=== PATIENT | female | born 1985 | race Hispanic/Latino ===

== ENCOUNTER 2023-06-29 12:34 | Observation (INO) | payer OTHER ==
[2023-06-29 14:00] LABS: PT Prothrombin Time 12.4 SECONDS (9.5-12.5); PTT, Activated Partial Thromb 31.6 SECONDS (24.3-36.9); Protime INR 1.13; Sqamous Epithelial <5 /HPF (None Seen); Urine Bacteria None Seen /HPF (<20); Urine Culture Reflex Order NOT NEEDED; Urine Micro Reflex YN NO BILL MICROSCOPIC; Urine Mucus Slight /HPF (None Seen); Urine RBC <5 /HPF (None Seen); Urine WBC <5 /HPF (<5)
[2023-06-29 14:06] LABS: Absolute Basophils 0.1 K/uL (0-0.5); Absolute Eosinophils 0.1 K/uL (0-0.5); Absolute Lymphocytes (CBC) 1.7 K/uL (0.7-4.9); Absolute Monocytes 0.6 K/uL (0.1-1.3); Basophils % 0.7 % (0-1.3); Eosinophils % 1.1 % (0-4.4); Hematocrit 37.3 % (36.0-45.0); Hemoglobin 12.4 g/dL (12.0-15.0); Lymphocytes % 19.6 % (15.3-44.8); MCH 28.2 pg (27.0-35.0); MCHC 33.2 g/dL (32.0-36.0); MPV 9.2 fL (7.6-11.3); Monocytes % 7.6 % (3.3-12.3); Platelets 351 thou/uL (152-406); RBC Red Blood Cell Count 4.39 M/uL (3.86-4.86)
[2023-06-29 14:16] LABS: Albumin 3.1 g/dL (3.4-5.0); Albumin/Globulin Ratio 0.7 (1.1-1.8); Anion Gap 8.7 mEq/L (5.0-15.0); Bilirubin Total 0.3 mg/dL (0.2-1.0); Globulin 4.3 g/dL (2.3-3.5); Potassium 3.7 mEq/L (3.5-5.1); Protein, Total 7.4 g/dL (6.4-8.2)
--- NOTE | 2023-06-29 14:22 | RAD REPORT ---
EXAM DESCRIPTION: CTAbdomen Pelvis W Contrast - 06/29/2023 2:15 pm CLINICAL HISTORY: Abdominal pain. pyelo COMPARISON: No comparisons TECHNIQUE: Biphasic CT imaging of the abdomen and pelvis was performed with 100 ml non-ionic IV cont rast. All CT scans are performed using dose optimization technique as appropriate and may include automated exposure control or mA/KV adjustment according to patient size. FINDINGS: The lung bases are clear. The liver is diffusely fatty. Spleen, pancreas, adrenal glands and kidneys are within normal limits. No bowel obstruction, free air, free fluid or abscess. Sigmoid diverticulosis. The appendix is normal . No evidence of significant lymphadenopathy. No suspicious bony findings. IMPRESSION: No acute intra-abdominal or pelvic finding.
[2023-06-29] MEDS ORDERED: Meropenem 1000 MG/VIAL IV ONE (14:44)
[2023-06-29] MEDS ORDERED: NA CHLORIDE 0.9% 100 ML ONE (14:44)
--- NOTE | 2023-06-29 14:47 | EDPHYS ---
Physician Documentation [facility] Name: Maren Sampson Age: 37 yrs Sex: Female : 1985 Arrival Date: 06/29/2023 Time: 12:34 Bed 16 Private MD: ED Physician Jermaine Sinha HPI: 06/28 13:36 This 37 yrs old Female presents to ER via Ambulatory with complaints of UTI. sb4 13:36 urinary symptoms started 1 month ago, took azo for 1 week without improvement. went to sb4 PCP, put her on macrobid, no improvement. culture grew ecoli ESBL with sensitivity to augmentin, macrobid, sulfa and mereopenem. took bactrim yesterday, had allergic reaction, PCP sent here for further management. patient endorses chills and low back pain. no history of UTIs, is not sexually active. Historical: - Allergies: 13:01 PENICILLINS; nj1 13:01 Sulfa (Sulfonamide Antibiotics); nj1 - PMHx: 13:01 Pre-diabetic; nj1 - Immunization history:: Client reports receiving the 2nd dose of the Covid vaccine. - Infectious Disease History:: ESBL, . - Social history:: Smoking status: Patient denies any tobacco usage or history of. ROS: 13:36 Constitutional: Positive for chills, sb4 13:36 Back: Positive for pain at rest, 13:36 : Positive for flank pain, hematuria, burning with urination, 13:36 All other systems are negative, Exam: 13:36 Constitutional: This is a well developed, well nourished patient who is awake, alert, sb4 and in no acute distress. Head/Face: Normocephalic, atraumatic. Eyes: Extra-ocular motions intact. Periorbital areas with no swelling, redness, or edema. ENT: Mucous membranes moist. Cardiovascular: Regular rate and rhythm with a normal S1 and S2. Respiratory: Lungs have equal breath sounds bilaterally, clear to auscultation and percussion. No rales, rhonchi or wheezes noted. No increased work of breathing, no retractions or nasal flaring. Abdomen/GI: Soft, non-tender, no distension. Skin: Warm, dry with normal turgor. Normal color with no rashes, no lesions, and no evidence of cellulitis. MS/ Extremity: Pulses equal, no cyanosis. Neurovascular intact. Full, normal range of motion. Neuro: Awake and alert, GCS 15, oriented to person, place, time, and situation. Motor strength 5/5 in all extremities. Sensory grossly intact. Vital Signs: 12:49 BP 139 / 83; Pulse 84; Resp 16; Temp 97.4; Pulse Ox 99% on R/A; Weight 87.09 kg; Height nj1 5 ft. 5 in. ; Pain 5/10; 14:22 BP 122 / 76; Pulse 82; Resp 16; Pulse Ox 97% ; bp 16:07 BP 127 / 74; Pulse 78; Resp 16; Pulse Ox 100% ; bp 12:49 Body Mass Index 31.95 (87.09 kg, 165.1 cm) nj1 12:49 Pain Scale: Adult nj1 MDM: 13:00 Patient medically screened. sb4 14:47 Data reviewed: vital signs, nurses notes, lab test result(s), radiologic studies, I sb4 have discussed the patient's presentation/case with the attending Emergency Department Physician; and as a result, I will admit patient. Consideration of Admission/Observation Escalation of care including admission/observation considered. Counseling: I had a detailed discussion with the patient and/or guardian regarding the historical points, exam findings, and any diagnostic results supporting the discharge/admit diagnosis, lab results, radiology results, the need for further work-up and treatment in the hospital. 06/28 13:02 Order name: Test, Urine; Complete Time: 14:06 [facility] 06/28 13:09 Order name: Blood Culture Adult (2) [facility] 06/28 13:09 Order name: CBC with Diff; Complete Time: 14:18 [facility] 06/28 13:09 Order name: CMP; Complete Time: 14:18 [facility] 06/28 13:09 Order name: Lactate w/ 2H reflex if indic.; Complete Time: 14:18 [facility] 06/28 13:09 Order name: Protime (+inr); Complete Time: 14:06 4 06/28 13:09 Order name: Ptt, Activated; Complete Time: 14:06 4 06/28 13:09 Order name: Urine Culture [facility] 06/28 13:52 Order name: Urine Microscopic Only; Complete Time: 14:06 EDMS 06/28 16:29 Order name: C-Reactive Protein EDMS 06/28 16:29 Order name: C-Reactive Protein EDMS 06/28 16:29 Order name: CBC with Automated Diff EDMS 06/28 16:29 Order name: CBC with Automated Diff EDMS 06/28 16:29 Order name: Comprehensive Metabolic Panel EDMS 06/28 16:29 Order name: Comprehensive Metabolic Panel EDMS 06/28 16:29 Order name: Procalcitonin EDMS 06/28 16:29 Order name: Procalcitonin EDMS 06/28 13:57 Order name: CT Abd/Pelvis - IV Contrast Only; Complete Time: 14:23 sb4 06/28 13:09 Order name: IV Saline Lock - Large Bore; Complete Time: 13:35 sb4 06/28 13:09 Order name: Labs collected and sent; Complete Time: 13:35 sb4 Administered Medications: 14:45 Drug: Meropenem IV 1 grams IV at calculated rate once; (mix in NS 100 mL) Route: IV; bp Rate: calculated rate; Site: left antecubital; 16:30 Follow up: Response: No adverse reaction; IV Status: Completed infusion; IV Intake: nj1 100ml 16:40 Drug: Acetaminophen PO 500 mg PO once Route: PO; nj1 17:50 Follow up: Response: No adverse reaction nj1 16:40 Drug: Sodium Chloride 0.9% IVPB 1000 ml IVPB at 100 ml/hr continuous Route: IVPB; Rate: nj1 100 ml/hr; Site: left antecubital; 17:50 Follow up: Response: No adverse reaction; IV Status: Infusion continued upon admission; nj1 IV Intake: 100ml Disposition: 14:47 Chart complete. sb4 Disposition Summary: 06/29/23 14:47 Hospitalization Ordered Notes: Hospitalization Status: Observation sb4 Provider: Wero Mcgee sb4 Location: Telemetry/MedSurg (observation) sb4 Condition: Fair sb4 Problem: an ongoing problem sb4 Symptoms: are unchanged sb4 Bed/Room Type: Standard sb4 Room Assignment: 405(06/29/23 16:49) bd Diagnosis - UTI secondary to ESBL ecoli sb4 Forms: - Medication Reconciliation Form sb4 - SBAR form sb4 - Leadership Thank You Letter sb4 Signatures: Dispatcher [employer] Evelin Cerdaara bd Too Dunne, RN RN Simi Martino PAJocelinC PA-C sb4 Perla Yip, RN RN nj1 Corrections: (The following items were deleted from the chart) 13: 13:09 BLOOD CULTURE*+BA.LAB.BRZ ordered. EDMS EDMS 13: 13:09 CBC+H.LAB.BRZ ordered. EDMS EDMS 13: 13:09 COMPREHENSIVE METABOLIC PANEL+C.LAB.BRZ ordered. EDMS EDMS 13: 13:09 LACTATE+C.LAB.BRZ ordered. EDMS EDMS 13: 13:09 PROTIME (+INR)+COAG.LAB.BRZ ordered. EDMS EDMS 13: 13:09 PTT, ACTIVATED+COAG.LAB.BRZ ordered. EDMS EDMS 13: 13:09 Urine Culture+BA.LAB.BRZ ordered. EDMS EDMS 13:52 13:02 Urinalysis W/Microscopic+U.LAB.BRZ ordered. EDMS EDMS 13:57 13:57 Abdomen Pelvis W Con+CT.RAD.BRZ ordered. EDMS EDMS 16:49 14:47 sb4 bd
--- NOTE | 2023-06-29 14:47 | ER ---
Nurse's Notes [facility] Name: Maren Sampson Age: 37 yrs Sex: Female : 1985 Arrival Date: 06/29/2023 Time: 12:34 Bed 16 Private MD: Diagnosis: UTI secondary to ESBL ecoli Presentation: 06/28 12:49 Chief complaint: Patient states: Has had urinary problems for about a month, was on a nj1 round of abx with no relief, given "sulfas" yesterday but had an allergic reaction. PCP instructed her to come to ED for treatment. 12:49 Coronavirus screen: Vaccine status: Patient reports receiving the 2nd dose of the covid nj1 vaccine. Ebola Screen: Patient denies travel to an Ebola-affected area in the 21 days before illness onset. Initial Sepsis Screen: Does the patient meet any 2 criteria? No. Patient's initial sepsis screen is negative. Does the patient have a suspected source of infection? No. Patient's initial sepsis screen is negative. Risk Assessment: Do you want to hurt yourself or someone else? Patient reports no desire to harm self or others. Onset of symptoms was May 2023. 12:49 Method Of Arrival: Ambulatory [facility] 12:49 Acuity: ALEN 3 [facility] Triage Assessment: 13:00 General: Appears in no apparent distress. uncomfortable, Behavior is calm, cooperative, bp appropriate for age. Pain: Complains of pain in pelvis. : Reports burning with urination. Historical: - Allergies: 13:01 PENICILLINS; nj1 13:01 Sulfa (Sulfonamide Antibiotics); nj1 - PMHx: 13:01 Pre-diabetic; nj1 - Immunization history:: Client reports receiving the 2nd dose of the Covid vaccine. - Infectious Disease History:: ESBL, . - Social history:: Smoking status: Patient denies any tobacco usage or history of. Screenin:22 [facility] ED Fall Risk Assessment (Adult) History of falling in the last 3 months, bp including since admission No falls in past 3 months (0 pts). Abuse screen: Denies threats or abuse. Denies injuries from another. Nutritional screening: No deficits noted. Tuberculosis screening: No symptoms or risk factors identified. Assessment: 13:10 General: Appears in no apparent distress. Behavior is calm, cooperative, appropriate bp for age. Pain: Complains of pain in pelvis. Neuro: No deficits noted. : Reports burning with urination. 14:22 Reassessment: No changes from previously documented assessment. Patient is alert, bp oriented x 3, equal unlabored respirations, skin warm/dry/pink. 16:07 Reassessment: Patient appears in no apparent distress at this time. Patient and/or bp family updated on plan of care and expected duration. Pain level reassessed. Patient is alert, oriented x 3, equal unlabored respirations, skin warm/dry/pink. Vital Signs: 12:49 BP 139 / 83; Pulse 84; Resp 16; Temp 97.4; Pulse Ox 99% on R/A; Weight 87.09 kg; Height nj1 5 ft. 5 in. ; Pain 5/10; 14:22 BP 122 / 76; Pulse 82; Resp 16; Pulse Ox 97% ; bp 16:07 BP 127 / 74; Pulse 78; Resp 16; Pulse Ox 100% ; bp 12:49 Body Mass Index 31.95 (87.09 kg, 165.1 cm) nj1 12:49 Pain Scale: Adult [facility] ED Course: 12:40 Patient arrived in ED. mg5 12:49 Too Dunne, RN is Primary Nurse. bp 13:00 Simi Chavarria PA-C is PHCP. sb4 13:00 Jermaine Sinha MD is Attending Physician. sb4 13:01 Triage completed. nj1 13:02 Arm band placed on. nj1 13:30 Inserted saline lock: 22 gauge in left antecubital area, using aseptic technique. Blood bp collected. 13:35 Blood Culture Adult (2) Sent. bp 13:35 CBC with Diff Sent. bp 13:35 CMP Sent. bp 13:35 Lactate w/ 2H reflex if indic. Sent. bp 13:35 Protime (+inr) Sent. bp 13:35 Ptt, Activated Sent. bp 13:35 Test, Urine Sent. bp 13:35 Urine Culture Sent. bp 14:17 CT Abd/Pelvis - IV Contrast Only In Process Unspecified. EDMS 14:22 Patient has correct armband on for positive identification. bp 14:46 Wero Mcgee MD is Hospitalizing Provider. sb4 16:00 Provided Education on: Contact precautions. nj1 17:50 No provider procedures requiring assistance completed. nj1 17:50 Patient admitted, IV remains in place. nj1 Administered Medications: 14:45 Drug: Meropenem IV 1 grams IV at calculated rate once; (mix in NS 100 mL) Route: IV; bp Rate: calculated rate; Site: left antecubital; 16:30 Follow up: Response: No adverse reaction; IV Status: Completed infusion; IV Intake: nj1 100ml 16:40 Drug: Acetaminophen PO 500 mg PO once Route: PO; nj1 17:50 Follow up: Response: No adverse reaction nj1 16:40 Drug: Sodium Chloride 0.9% IVPB 1000 ml IVPB at 100 ml/hr continuous Route: IVPB; Rate: nj1 100 ml/hr; Site: left antecubital; 17:50 Follow up: Response: No adverse reaction; IV Status: Infusion continued upon admission; nj1 IV Intake: 100ml Medication: 17:50 VIS not applicable for this client. nj1 Intake: 16:30 IV: 100ml; Total: 100ml. nj1 17:50 IV: 100ml; Total: 200ml. nj1 Outcome: 14:47 Decision to Hospitalize by Provider. sb4 17:50 Admitted to Tele accompanied by tech, via wheelchair, nj1 17:50 Condition: stable 17:50 Instructed on the need for admit, 17:57 Patient left the ED. [facility] Signatures: Dispatcher [employer] EDToo Moyer, RN RN Simi Martino, PA-C PA-C sb4 Perla Yip RN RN [facility] Skye Bermudez mg5 Corrections: (The following items were deleted from the chart) 13:52 13:35 Urinalysis W/Microscopic+U.LAB.JSZ drawn and sent. bp VARGAS
[2023-06-29] MEDS ORDERED: ACETAMINOPHEN 500 MG TAB PO PRN (16:25)
[2023-06-29] MEDS ORDERED: ONDANSETRON 4 MG/2 ML VIAL IV PRN (16:25)
[2023-06-29] MEDS ORDERED: MORPHINE 4 MG/ML SYR IV PRN (16:35)
--- NOTE | 2023-06-29 16:37 | P.HP ---
Certification for Inpatient Patient admitted to: Observation With expected LOS: <2 Midnights Patient will require the following post-hospital care: None Practitioner: I am a practitioner with admitting privileges, knowledge of patient current condition, hospital course, and medical plan of care. Services: Services provided to patient in accordance with Admission requirements found in Title 42 Section 412.3 of the Code of Federal Regulations Patient History Date of Service: 06/29/23 Reason for admission: Abdominal fullness History of Present Illness: Patient is a 37-year-old female came to the hospital with abdominal pain. Patient been having some dysuria and she went to see her primary care provider and they did a urinalysis with microscopy. Urine cultures revealed ESBL E. coli. This was June 18, 2023. She has been treated with nitrofurantoin over the course of 10 days. She also received 1 dose of Bactrim. She had a reaction to the Bactrim where she broke out into hives. - Past Medical/Surgical History -: UTI Past Surgical History: Patient denies surgical history - Family History Father Family History: Reviewed- Non-Contributory - Social History Smoking Status: Former smoker Alcohol use: No CD- Drugs: No Review of Systems 10-point ROS is otherwise unremarkable Physical Examination - Vital Signs Temperature: 98 F Blood Pressure: 110/80 Pulse: 80 Respirations: 18 Pulse Ox (%): 95 - Physical Exam General: Alert, In no apparent distress, Oriented x3 HEENT: Atraumatic, PERRLA, Mucous membr. moist/pink, EOMI, Sclerae nonicteric Neck: Supple, 2+ carotid pulse no bruit, No LAD, Without JVD or thyroid abnormality Respiratory: Clear to auscultation bilaterally, Normal air movement Cardiovascular: Regular rate/rhythm, Normal S1 S2 Gastrointestinal: Normal bowel sounds, Soft and benign, Non-distended, Tenderness Musculoskeletal: No clubbing, No swelling, No tenderness Integumentary: No rashes Neurological: Normal gait, Normal speech, Normal strength at 5/5 x4 extr, Normal tone, Sensation intact, Cranial nerves 3-12 intact, Normal affect Lymphatics: No axilla or inguinal lymphadenopathy - Studies Laboratory Data (last 24 hrs) 06/29/23 06/29/23 06/29/23 13:30 13:30 13:30 WBC 8.50 Hgb 12.4 Hct 37.3 Plt Count 351 PT 12.4 INR 1.13 APTT 31.6 Sodium 139 Potassium 3.7 BUN 10 Creatinine 0.98 Glucose 111 H Total Bilirubin 0.3 AST 8 L ALT 17 Alkaline Phosphatase 66 Assessment & Plan - Problems (Diagnosis) (1) Abdominal pain Current Visit: Yes Status: Acute (2) Abdominal fullness Current Visit: Yes Status: Acute - Plan Plan: 1. IVFs 2. Further imaging modality 3. Repeat Ua in AM 4. Inflammatory markers 5. Concern for pelvic congestion syndrome 6. GI/DVT prophylaxis Discharge Plan: Home - Advance Directives Does patient have a Living Will: No Does patient have a Durable POA for Healthcare: No - Code Status/Comfort Care Code Status Assessed: Yes Code Status: Full Code Critical Care: No Time Spent Managing PTS Care (In Minutes): 45
[2023-06-29] MEDS: NA CHLORIDE 0.9% 1,000 ML IV SCH (17:00)
[2023-06-29 18:15] VITALS: O2SAT 100
[2023-06-29 21:30] VITALS: BMI 31.9
[2023-06-30] MEDS: Meropenem 500 MG in NA CHLORIDE 0.9% 100 ML IV SCH (01:10)
[2023-06-30 04:01] LABS: Absolute Basophils 0.1 K/uL (0-0.5); Absolute Eosinophils 0.2 K/uL (0-0.5); Absolute Lymphocytes (CBC) 2.1 K/uL (0.7-4.9); Absolute Monocytes 0.7 K/uL (0.1-1.3); Basophils % 0.7 % (0-1.3); Eosinophils % 2.4 % (0-4.4); Hemoglobin 11.1 g/dL (12.0-15.0); Lymphocytes % 30.1 % (15.3-44.8); MCH 28.1 pg (27.0-35.0); MCHC 32.7 g/dL (32.0-36.0); MPV 9.2 fL (7.6-11.3); Neutrophils % 56.8 % (41.7-73.7); Platelets 285 thou/uL (152-406); RBC Red Blood Cell Count 3.96 M/uL (3.86-4.86); Red Cell Distribution Width 14.9 % (12.1-15.2)
[2023-06-30 04:25] LABS: ALT/SGPT 15 U/L (13-56); AST/SGOT 6 U/L (15-37); Albumin 2.8 g/dL (3.4-5.0); Albumin/Globulin Ratio 0.8 (1.1-1.8); Alkaline Phosphatase 56 U/L (45-117); BUN Blood Urea Nitrogen 11 mg/dL (7-18); Bicarbonate 27 mEq/L (21-32); Bilirubin Total 0.3 mg/dL (0.2-1.0); Globulin 3.6 g/dL (2.3-3.5); Glomerular Filtration Rate 103 ml/min (=/>90); Glucose Level 104 mg/dL (74-106); Protein, Total 6.4 g/dL (6.4-8.2); Sodium Level 141 mEq/L (136-145)
[2023-06-30 04:28] LABS: C-Reactive Protein < 2.90 mg/L (<3.00)
[2023-06-30 08:32] VITALS: BP 117/76; TEMP 97.2
[2023-06-30] MEDS: NA CHLORIDE 0.9% 500 ML IV ONE (09:08)
[2023-07-01] MEDS ORDERED: METFORMIN ER 500 MG TAB PO SCH (09:00)
[2023-07-02 17:16] LABS: C.trachomatis RNA,TMA Not Detected (Not Detected); N.gonorrhoeae RNA,TMA Not Detected (Not Detected)
[2023-07-04] MEDS ORDERED: HOME MED 1 EA UNK (Semaglutide [Ozempic] 1 MG/0.75 ML Pen.Injctr) SQ SCH (09:00)
== END 2023-06-30 11:15 | disposition home or self-care (01) ==
LOC: ER 12:34 → 4TH 16:25
PROVIDERS: ADMIT Hospitalist; ATTEND Hospitalist
DX: N30.90 Cystitis, unspecified without hematuria (principal); B96.20 Unspecified Escherichia coli [E. coli] as the cause of diseases classified elsewhere; Z88.0 Allergy status to penicillin; Z88.2 Allergy status to sulfonamides; Z16.12 Extended spectrum beta lactamase (ESBL) resistance
CPT/HCPCS: 96365; 96367; 87040 ×2; 87088; 85025 ×2; 87086; 36415; 81025; 85610; 83605; 85730; 81015; 80053 ×2; 84145; 87590; 87490; 86140; 74177; 99285; 96366; Q9967; J2185; J7030 ×2; G0378 ×3